=== PATIENT | male | born 2000 | race Caucasian/White ===

== ENCOUNTER 2018-09-07 06:51 | Inpatient (IN) | payer MEDICAID ==
[2018-09-07] MEDS ORDERED: IPRATROPIUM-ALBUTEROL 3 ML NEB INHALATION STA (07:28)
--- NOTE | 2018-09-07 07:31 | ED ---
General Adult HPI - General Chief complaint: Shortness of Breath Stated complaint: Difficulty Breathing Time Seen by Provider: 09/07/18 07:04 Source: patient, RN notes reviewed Mode of arrival: ambulatory Limitations: no limitations - History of Present Illness Initial comments: Patient is a pleasant 18-year-old male presenting to the emergency department with difficulty in breathing. Onset of symptoms was several days ago. Symptoms have worsened since that time answering to become severe. Patient has had a cough for the past month or so prior to this. No history of chronic breathing problems are similar symptoms previously. No chest pain. Patient does have history of some sort of congenital valve problem however has never had any problems with this. - Related Data Home Medications Medication Instructions Recorded Confirmed Ibuprofen [Motrin Ib] 200 mg PO Q4H PRN 09/07/18 09/07/18 guaiFENesin [Mucinex] 600 mg PO Q12H PRN 09/07/18 09/07/18 Allergies Allergy/AdvReac Type Severity Reaction Status Date / Time Penicillins Allergy Unknown Verified 09/07/18 07:48 Review of Systems ROS Statement: Those systems with pertinent positive or pertinent negative responses have been documented in the HPI. ROS Other: All systems not noted in ROS Statement are negative. Constitutional: Denies: fever Eyes: Denies: eye pain ENT: Denies: ear pain Respiratory: Reports: as per HPI, cough (Cough has resolved), dyspnea Cardiovascular: Denies: chest pain Endocrine: Reports: fatigue Gastrointestinal: Denies: abdominal pain Genitourinary: Denies: dysuria Musculoskeletal: Denies: back pain Skin: Denies: rash Neurological: Denies: weakness Past Medical History Past Medical History: No Reported History Additional Past Medical History / Comment(s): Congenital heart defect bicuspid valve no restrictions, followed by [facility] History of Any Multi-Drug Resistant Organisms: None Reported Additional Past Surgical History / Comment(s): EYE- muscles in both eyes tightened 1999 Past Psychological History: No Psychological Hx Reported Smoking Status: Never smoker Past Alcohol Use History: None Reported Past Drug Use History: None Reported - Past Family History Mother Additional Family Medical History / Comment(s): hypoglycemic, CA on mom's side, mom had precancerous cells, monitored yearly General Exam Limitations: no limitations General appearance: alert Head exam: Present: atraumatic Eye exam: Present: normal appearance, PERRL ENT exam: Present: normal oropharynx Neck exam: Present: normal inspection Respiratory exam: Present: wheezes, accessory muscle use, decreased breath sounds Cardiovascular Exam: Present: regular rate, normal rhythm GI/Abdominal exam: Present: soft. Absent: tenderness Extremities exam: Present: normal inspection. Absent: pedal edema, calf tend erness Neurological exam: Present: alert Psychiatric exam: Present: normal affect, normal mood Skin exam: Present: normal color Course Vital Signs 09/07/18 09/07/18 09/07/18 06:56 07:52 07:59 Temperature 98.2 F Pulse Rate 108 H 103 H 122 H Respiratory 24 18 Rate Blood Pressure 136/82 126/87 O2 Sat by Pulse 96 95 Oximetry 09/07/18 09/07/18 09/07/18 08:06 09:35 10:03 Temperature 98.4 F Pulse Rate 124 H 107 H 112 H Respiratory 22 22 Rate Blood Pressure 114/97 125/91 O2 Sat by Pulse 96 96 Oximetry EKG Findings - EKG Comments: EKG Findings:: Normal sinus rhythm and 97. VT 118. QRS 92. QT 340. QTc 431. Right axis. Poor R-wave progression. Incomplete right bundle-branch block. Normal ST-T. Medical Decision Making - Medical Decision Making Patient reevaluated and resting comfortably in bed. Air exchange increased however wheezing has also increased. Patient again denies any history of smoking or asthma. Patient updated on results and plan. Case was discussed in detail with Dr. Gardiner, who will admit covering for hospital call. Echo will be ordered. - Lab Data Result diagrams: 09/07/18 07:14 09/07/18 07:14 Lab Results 09/07/18 09/07/18 09/07/18 Range/Units 07:14 07:14 07:14 WBC 14.4 H (4.0-11.0) k/uL RBC 5.85 (4.30-5.90) m/uL Hgb 17.7 H (13.0-17.5) gm/dL Hct 51.7 (39.0-53.0) % MCV 88.3 (80.0-100.0) fL MCH 30.2 (25.0-35.0) pg MCHC 34.2 (31.0-37.0) g/dL RDW 14.2 (11.5-15.5) % Plt Count 341 (150-450) k/uL Neutrophils % 72 % Lymphocytes % 17 % Monocytes % 4 % Eosinophils % 5 % Basophils % 1 % Neutrophils # 10.3 H (1.3-7.7) k/uL Lymphocytes # 2.4 (1.0-4.8) k/uL Monocytes # 0.5 (0-1.0) k/uL Eosinophils # 0.8 H (0-0.7) k/uL Basophils # 0.1 (0-0.2) k/uL PT (9.0-12.0) sec INR (<1.2) APTT (22.0-30.0) sec D-Dimer (<0.60) mg/L FEU Sodium 140 (137-145) mmol/L Potassium 5.0 (3.5-5.1) mmol/L Chloride 101 (98-107) mmol/L Carbon Dioxide 26 (22-30) mmol/L Anion Gap 13 mmol/L BUN 12 (9-20) mg/dL Creatinine 0.71 (0.66-1.25) mg/dL Est GFR (CKD-EPI)AfAm >90 (>60 ml/min/1.73 sqM) Est GFR (CKD-EPI)NonAf >90 (>60 ml/min/1.73 sqM) Glucose 84 (74-99) mg/dL Calcium 10.5 H (8.4-10.2) mg/dL Total Bilirubin 1.4 H (0.2-1.3) mg/dL AST 38 (17-59) U/L ALT 38 (21-72) U/L Alkaline Phosphatase 148 H (38-126) U/L Creatine Kinase 197 H (55-170) U/L CK-MB (CK-2) 5.2 H (0.0-2.4) ng/mL Troponin I <0.012 (0.000-0.034) ng/mL NT-Pro-B Natriuret Pep pg/mL Total Protein 9.0 H (6.3-8.2) g/dL Albumin 5.4 H (3.5-5.0) g/dL 09/07/18 09/07/18 Range/Units 07:14 07:14 WBC (4.0-11.0) k/uL RBC (4.30-5.90) m/uL Hgb (13.0-17.5) gm/dL Hct (39.0-53.0) % MCV (80.0-100.0) fL MCH (25.0-35.0) pg MCHC (31.0-37.0) g/dL RDW (11.5-15.5) % Plt Count (150-450) k/uL Neutrophils % % Lymphocytes % % Monocytes % % Eosinophils % % Basophils % % Neutrophils # (1.3-7.7) k/uL Lymphocytes # (1.0-4.8) k/uL Monocytes # (0-1.0) k/uL Eosinophils # (0-0.7) k/uL Basophils # (0-0.2) k/uL PT 11.0 (9.0-12.0) sec INR 1.0 (<1.2) APTT 24.4 (22.0-30.0) sec D-Dimer 0.20 (<0.60) mg/L FEU Sodium (137-145) mmol/L Potassium (3.5-5.1) mmol/L Chloride (98-107) mmol/L Carbon Dioxide (22-30) mmol/L Anion Gap mmol/L BUN (9-20) mg/dL Creatinine (0.66-1.25) mg/dL Est GFR (CKD-EPI)AfAm (>60 ml/min/1.73 sqM) Est GFR (CKD-EPI)NonAf (>60 ml/min/1.73 sqM) Glucose (74-99) mg/dL Calcium (8.4-10.2) mg/dL Total Bilirubin (0.2-1.3) mg/dL AST (17-59) U/L ALT (21-72) U/L Alkaline Phosphatase (38-126) U/L Creatine Kinase (55-170) U/L CK-MB (CK-2) (0.0-2.4) ng/mL Troponin I (0.000-0.034) ng/mL NT-Pro-B Natriuret Pep 44 pg/mL Total Protein (6.3-8.2) g/dL Albumin (3.5-5.0) g/dL - Radiology Data Radiology results: image reviewed (Chest x-ray shows no acute process) Disposition Clinical Impression: Dyspnea, Bronchospasm Disposition: ADMITTED IP TO THIS HOSP Is patient prescribed a controlled substance at d/c from ED?: No Referrals: None,Stated [Primary Care Provider] - 1-2 days Decision Time: 10:23
--- NOTE | 2018-09-07 08:34 | XR ---
EXAMINATION TYPE: XR chest 2V DATE OF EXAM: 09/07/2018 COMPARISON: Chest x-ray February 07, 2014 HISTORY: Difficulty breathing on exertion. TECHNIQUE: Frontal and lateral views of the chest are obtained. FINDINGS: Overlying EKG leads are present. Satisfactory inspiration is noted. There is no focal air space opacity, pleural effusion, or pneumothorax seen. The cardiac silhouette size is within normal limits. The osseous structures are intact. IMPRESSION: No acute cardiopulmonary process. No significant change from prior.
[2018-09-07 08:41] LABS: Basophils # (A) 0.1 k/uL (0-0.2); Basophils % (A) 1 %; Eosinophils # (A) 0.8 k/uL (0-0.7); Eosinophils % (A) 5 %; HCT 51.7 % (39.0-53.0); HGB 17.7 gm/dL (13.0-17.5); Lymphocytes # (A) 2.4 k/uL (1.0-4.8); Lymphocytes % (A) 17 %; MCH 30.2 pg (25.0-35.0); MCHC 34.2 g/dL (31.0-37.0); MCV 88.3 fL (80.0-100.0); Mean Platelet Volume 7.6; Monocytes # (A) 0.5 k/uL (0-1.0); Monocytes % (A) 4 %; Neutrophils # (A) 10.3 k/uL (1.3-7.7); Neutrophils % (A) 72 %; Platelet Count 341 k/uL (150-450); RBC 5.85 m/uL (4.30-5.90); RDW 14.2 % (11.5-15.5); WBC 14.4 k/uL (4.0-11.0)
[2018-09-07 08:47] LABS: ALT 38 U/L (21-72); AST 38 U/L (17-59); Albumin 5.4 g/dL (3.5-5.0); Alkaline Phosphatase 148 U/L (38-126); Anion Gap 13 mmol/L; Blood Urea Nitrogen 12 mg/dL (9-20); Calcium 10.5 mg/dL (8.4-10.2); Carbon Dioxide 26 mmol/L (22-30); Chloride 101 mmol/L (98-107); Creatine Kinase 197 U/L (55-170); Glucose 84 mg/dL (74-99); Sodium 140 mmol/L (137-145); Total Bilirubin 1.4 mg/dL (0.2-1.3)
[2018-09-07 08:48] LABS: D-Dimer 0.2 mg/L FEU (<0.60); Partial Thromboplastin Time 24.4 sec (22.0-30.0)
[2018-09-07 09:07] LABS: Creatine Kinase MB 5.2 ng/mL (0.0-2.4); Troponin I <0.012 ng/mL (0.000-0.034)
[2018-09-07] MEDS ORDERED: methylPREDNISolone SOD SUCCI 125 MG/2 ML VIAL IV STA (10:23)
[2018-09-07] MEDS ORDERED: IPRATROPIUM-ALBUTEROL 3 ML NEB INHALATION PRN (10:23)
[2018-09-07] MEDS: IPRATROPIUM-ALBUTEROL 3 ML NEB INHALATION SCH ×3 (11:29→19:24)
--- NOTE | 2018-09-07 12:33 | ECHOF ---
Referral Reason:Dyspnea. History of valve problem MEASUREMENTS -------- HEIGHT: 165.1 cm WEIGHT: 49.9 kg BP: 123/87 RVIDd: 2.1 cm (< 3.3) IVSd: 1.0 cm (0.6 - 1.1) LVIDd: 2.9 cm (3.9 - 5.3) LVPWd: 1.0 cm (0.6 - 1.1) IVSs: 1.3 cm LVIDs: 2.0 cm LVPWs: 1.4 cm LA Diam: 1.7 cm (2.7 - 3.8) LAESV Index (A-L): 8.50 ml/m Ao Diam: 3.4 cm (2.0 - 3.7) AV Cusp: 2.1 cm (1.5 - 2.6) EPSS: 0.5 cm MV E Chacorta: 0.82 m/s MV DecT: 340 ms MV A Chacorta: 0.78 m/s MV E/A Ratio: 1.06 AV maxP.01 mmHg AV meanP.11 mmHg RAP: 5.00 mmHg RVSP: 30.82 mmHg MV EF SLOPE: 59.63 mm/s (70 - 150) MV EXCURSION: 2.00 cm (> 18.000) FINDINGS -------- Sinus rhythm. This was a technically good study. The left ventricular size is normal. Left ventricular wall thickness is normal. Overall left vent ricular systolic function is normal with, an EF between 60 - 65 %. The right ventricle is normal in size. Normal LA size by volume 22+/-6 ml/m2. The right atrium is normal in size. Interatrial and interventricular septum intact. Peak/mean gradient across the Aortic Valve is 5.01mmHg / 2.11mmHg. Functionally bicuspid aortic amelia ve. The mitral valve is normal. Mild tricuspid regurgitation present. Right ventricular systolic pressure is normal at < 35 mmHg. There is no pulmonic regurgitation present. The aortic root size is normal. Normal inferior vena cava with normal inspiratory collapse consistent with estimated right atrial pre ssure of 5 mmHg. There is no pericardial effusion. CONCLUSIONS -------- 1. Sinus rhythm. 2. This was a technically good study. 3. The left ventricular size is normal. 4. Left ventricular wall thickness is normal. 5. Overall left ventricular systolic function is normal with, an EF between 60 - 65 %. 6. The right ventricle is normal in size. 7. Normal LA size by volume 22+/-6 ml/m2. 8. The right atrium is normal in size. 9. Interatrial and interventricular septum intact. 10. Peak/mean gradient across the Aortic Valve is 5.01mmHg / 2.11mmHg. 11. Functionally bicuspid aortic valve. 12. The mitral valve is normal. 13. Mild tricuspid regurgitation present. 14. Right ventricular systolic pressure is normal at < 35 mmHg. 15. There is no pulmonic regurgitation present. 16. The aortic root size is normal. 17. Normal inferior vena cava with normal inspiratory collapse consistent with estimated right atrial pressure of 5 mmHg. 18. There is no pericardial effusion. SOC ANALYST: FORREST Salazar
[2018-09-07] MEDS: methylPREDNISolone SOD SUCCI 125 MG/2 ML VIAL IV SCH ×2 (15:34→17:24)
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
--- NOTE | 2018-09-07 17:35 | CT ---
EXAMINATION TYPE: CT chest angio for PE DATE OF EXAM: 09/07/2018 COMPARISON: NONE HISTORY: HERB. Hx bicuspid aortic valve defect CT DLP: 125.40 mGycm. Automated Exposure Control for Dose Reduction was Utilized. CONTRAST: CTA scan of the thorax is performed with IV Contrast, patient injected with 100 mL of Isovue 370, pul monary embolism protocol. MIP Images are created on CT scanner and reviewed. FINDINGS: LUNGS: There are multiple focal areas of ground glass opacity seen bilaterally slightly more prominen t anteriorly and centrally. Exam is noted suboptimal due to respiratory motion artifact degradation w hich limits evaluation for subcentimeter nodules. No suspicious mass is clearly seen. No pleural effu chantal or pneumothorax is noted. MEDIASTINUM: There is suboptimal study with heterogeneity and nearly equal contrast in right and lef t heart systems, there is no central or lobar pulmonary embolism. Smaller segmental and subsegmental PE is not excluded on this study. There are no greater than 1 cm hilar or mediastinal lymph nodes. No cardiomegaly or pericardial effusion is seen. OTHER: No additional significant abnormality is seen. IMPRESSION: 1. Suboptimal study without central large pulmonary embolism. Smaller segmental and subsegmental PE c annot be excluded on this exam. 2. Bilateral multifocal edema and/or infiltrates centrally in both lungs. Correlate clinically for po ssible multifocal pneumonia.
[2018-09-07] MEDS ORDERED: AZITHROMYCIN 500 MG in SODIUM CHLORIDE 0.9% 250 ML IVPB SCH (20:00)
[2018-09-08] MEDS: methylPREDNISolone SOD SUCCI 125 MG/2 ML VIAL IV SCH ×4 (00:12→19:52)
[2018-09-08] MEDS: IPRATROPIUM-ALBUTEROL 3 ML NEB INHALATION SCH ×4 (07:20→19:07)
[2018-09-08 07:44] LABS: Basophils % (A) 0 %; Eosinophils # (A) 0.1 k/uL (0-0.7); Eosinophils % (A) 1 %; HCT 46.5 % (39.0-53.0); HGB 15.6 gm/dL (13.0-17.5); Lymphocytes # (A) 1.2 k/uL (1.0-4.8); Lymphocytes % (A) 11 %; MCH 30.3 pg (25.0-35.0); MCHC 33.6 g/dL (31.0-37.0); MCV 90.3 fL (80.0-100.0); Mean Platelet Volume 6.8; Monocytes # (A) 0.2 k/uL (0-1.0); Monocytes % (A) 2 %; Neutrophils # (A) 8.9 k/uL (1.3-7.7); Neutrophils % (A) 86 %; Platelet Count 341 k/uL (150-450); RBC 5.15 m/uL (4.30-5.90); RDW 13.2 % (11.5-15.5); WBC 10.3 k/uL (4.0-11.0)
[2018-09-08 07:53] LABS: ALT 28 U/L (21-72); AST 21 U/L (17-59); Albumin 4.9 g/dL (3.5-5.0); Alkaline Phosphatase 107 U/L (38-126); Anion Gap 11 mmol/L; Blood Urea Nitrogen 15 mg/dL (9-20); Calcium 10.3 mg/dL (8.4-10.2); Carbon Dioxide 23 mmol/L (22-30); Chloride 104 mmol/L (98-107); Glucose 137 mg/dL (74-99); Sodium 138 mmol/L (137-145); Total Bilirubin 0.8 mg/dL (0.2-1.3); Total Protein 7.9 g/dL (6.3-8.2)
--- NOTE | 2018-09-08 09:50 | P.PN ---
Subjective Progress Note Date: 09/08/18 Principal diagnosis: Pneumonia Patient feels much better today, shortness of breath has significantly improved, denies wheezing, no nausea no vomiting and no chest pain. Objective - Vital Signs Vital signs: Vital Signs Temp 97.7 F 09/08/18 05:39 Pulse 88 09/08/18 07:33 Resp 16 09/08/18 05:39 BP 94/56 09/08/18 05:39 Pulse Ox 92 L 09/08/18 05:39 Intake & Output 09/07/18 09/08/18 09/08/18 18:59 06:59 18:59 Intake Total 1540 1210 Balance 1540 1210 Intake: Intake, IV Titration 100 250 Amount Azithromycin 500 mg In 250 Sodium Chloride 0.9% 250 ml @ 250 mls/hr IVPB Q24H [facility]UE Rx#:[id number] cefTRIAXone 1 gm In 100 Sodium Chloride 0.9% 50 ml @ 100 mls/hr IVPB Q24HR [facility]UE Rx#:[id number] Oral 1440 960 Other: Voiding Method Toilet Toilet # Voids 2 2 1 - Exam Constitutional: No acute distress, pleasant Eyes: Anicteric sclerae, PERRLA ENMT: NC/AT Neck:Supple, supple no JVD Lungs: Clear to auscultation, no crackles no wheezing or rhonchi Cardiovascular: Heart regular in rate and rhythm, No murmurs, gallops, or rubs no peripheral edema Abdominal: Soft Nontender, nom distended, no guarding, no rebound or rigidity Skin: Normal temperature, tone, texture, turgor Extremities:No digital cyanosis No clubbing, no edema. Psychiatric: Alert and oriented to person, place and time, Appropriate affect Intact judgement Neuro: Muscles Strength 5/5 in all 4 extremities, Cranial nerves II-XII grossly intact - Labs CBC & Chem 7: 09/08/18 07:15 09/08/18 07:15 Labs: Abnormal Lab Results - Last 24 Hours (Table) 09/08/18 09/08/18 Range/Units 07:15 07:15 Neutrophils # 8.9 H (1.3-7.7) k/uL Creatinine 0.62 L (0.66-1.25) mg/dL Glucose 137 H (74-99) mg/dL Calcium 10.3 H (8.4-10.2) mg/dL Assessment and Plan Plan: 1. Bilateral multifocal pneumonia, unspecified organism: Continue Ceftin and Zithromax, oxygen and bronchodilators as indicated. Continue IV steroids for wheezing which has significantly improved. CTA chest negative for PE 2. Bicuspid aortic valve: 2-D echo unremarkable for acute findings, CTA chest unremarkable except for pneumonia, cardiology following. 3. Leukocytosis: WBC normalized from 14.4 down to 10.3 4. DVT prophylaxis Change to inpatient Disposition: Home in 1-2 days
[2018-09-08] MEDS ORDERED: NADOLOL 20 MG TAB PO SCH (10:00)
[2018-09-08 10:49] VITALS: BMI 18.3
--- NOTE | 2018-09-08 13:48 | P.CRDCN ---
History of Present Illness History of present illness: This is a pleasant 18-year-old male past medical history significant for bicuspid aortic valve and occasional marijuana use. He follows with Dr. Nunes from [facility]. We have been asked to see him in consultation for congenital heart disease. He was diagnosed with a biscuspid aortic valve as a child and established with Dr. Nunes. He has never had any heart failure or symptoms of valvular heart disease. He states he has been coughing intermittently for the last month with some mild shortness of breath. Until 2 days ago when his shortness of breath increased dramatically. He was at work doing a particularly strenuous task when he became so short of breath he had to sit down. There was no chest pain, dizziness, nausea, vomiting or diaphoresis. He states his heart rate is almost always on the fast side up to 120 sometimes at home. At the time of his shortness of breath he did not notice any palpitations but his heart was racings. He has been started on IV antibiotics since admission along with updraft treatments and IV steroids. He states his breathing has stabilized at rest however he hasn't been up doing much to assess his exertional breathing. EKG reveals sinus rhythm, right axis deviation, incomplete right bundle block, right axis deviation, t-wave inversion inferiorly and P-wave inversions. Suggestive of PE. Chest x-ray obtained on admission is negative for an acute cardiopulmonary process. CTA chest is negative for central large pulmonary embolus, smaller segmental and subsegmental PEs cannot be excluded, bilateral multifocal edema and infiltrates essentially rambles lungs possible multifocal pneumonia suspected. Echocardiogram reveals preserved left ventricular systolic function with ejection fraction 60-65%, bicuspid aortic valve with a mean gradient across the valve of 2 mmHg, mild TR. Laboratory data reviewed, on admission WBC was 14.4 repeat today 10.3, hemoglobin 15.6, platelets 341, d-dimer 0.2, sodium 138, potassium 5, creatinine 0.62, cardiac enzymes negative 1, and T proBNP 44, TSH 0.147. She takes no daily cardiac medications. At the time of my exam: CONSTITUTIONAL: Denies fever. Denies chills. EYES: Denies blurred vision. Denies vision changes. Denies eye pain. EARS, NOSE, MOUTH & THROAT: Denies headache. Denies sore throat. Denies ear pain. CARDIOVASCULAR: Denies chest pain. Denies shortness of breath. Denies orthopnea. Denies PND. Denies palpitations. RESPIRATORY: Complains of cough. GASTROINTESTINAL: Denies abdominal pain. Denies diarrhea. Denies constipation. Denies nausea. Denies vomiting. MUSCULOSKELETAL: Denies myalgias. INTEGUMENTARY: Denies pruitis. Denies rash. NEUROLOGIC: Denies numbness. Denies tingling. Denies weakness. PSYCHIATRIC: Denies anxiety. Denies depression. ENDOCRINE: Denies fatigue. Denies weight change. Denies polydipsia. Denies polyurina. GENITOURINARY: Denies burning, hematuria or urgency with micturation. HEMATOLOGIC: Denies history of anemia. Denies bleeding. Blood pressure 118/82 heart rate fluctuating between 80-120 afebrile maintaining oxygen saturation on room air GENERAL: This is a 18-year-old male in no apparent distress at the time of my examination. HEENT: Head is atraumatic, normocephalic. Pupils are equal, round. Sclerae anicteric. Conjunctivae are clear. Mucous membranes of the mouth are moist. Neck is supple. There is no jugular venous distention. No carotid bruit is heard. LUNGS: Clear to auscultation no wheezes, rales or rhonchi. No chest wall tenderness is noted on palpation or with deep breathing. HEART: Regular rate and rhythm without murmurs, rubs or gallops. S1 and S2 heard. ABDOMEN: Soft, nontender. Bowel sounds are heard. No organomegaly noted. EXTREMITIES: No evidence of peripheral edema and no calf tenderness noted. VASCULAR: Radial and dorsalis pedis pulses palpated, no evidence of clubbing. NEUROLOGIC: Patient is awake, alert and oriented x3. ASSESSMENT Shortness of breath, currently being treated for multifocal pneumonia. Biscuspid aortic valve with mild stenosis Leukocytosis Sinus tachycardia, persistent. PLAN CTA negative for large central PE with possibly smaller PE's not entirely excluded. Check TSH and free T4 for possibility of hyperthyroidism causing his chronic tachycardia. He is also quite thin. Repeat EKG. Check for orthostatic changes. No evidence of RV strain on echo. Initiated on nadolol 20 mg, however he felt tired, weak and drowsy after taking. Has been discontinued. Further recommendations to follow. Thank you kindly for this consultation. Nurse Practitioner note has been reviewed, I agree with a documented findings and plan of care. Patient was seen and examined. Past Medical History Past Medical History: Syncope Additional Past Medical History / Comment(s): Congenital heart defect bicuspid valve- no restrictions, syncope d/t dehydration. History of Any Multi-Drug Resistant Organisms: None Reported Additional Past Surgical History / Comment(s): EYE- muscles in both eyes tightened 2000 Past Anesthesia/Blood Transfusion Reactions: No Reported Reaction Smoking Status: Never smoker - Past Family History Mother History Unknown: Yes Additional Family Medical History / Comment(s): Pt states he has not been in contact with his mother and does not know her health hx Father Family Medical History: No Reported History Additional Family Medical History / Comment(s): Father in a motorcycle accident when pt was 4 yrs old. Medications and Allergies Home Medications Medication Instructions Recorded Confirmed Type Ibuprofen [Motrin Ib] 200 mg PO Q4H PRN 09/07/18 09/07/18 History guaiFENesin [Mucinex] 600 mg PO Q12H PRN 09/07/18 09/07/18 History Allergies Allergy/AdvReac Type Severity Reaction Status Date / Time Penicillins Allergy Unknown Verified 09/07/18 07:48 Physical Exam Vitals: Vital Signs Temp Pulse Pulse Pulse Pulse Pulse Pulse 09/08/18 10:30 97 118 H 90 09/08/18 08:00 88 09/08/18 07:33 88 09/08/18 07:20 87 09/08/18 05:39 97.7 F 110 H 09/08/18 00:00 92 09/07/18 21:00 98.0 F 128 H 09/07/18 20:01 09/07/18 19:36 88 09/07/18 19:26 82 09/07/18 16:00 100 09/07/18 15:53 102 H 09/07/18 15:45 98 09/07/18 14:00 99.1 F 100 09/07/18 13:32 120 H Resp BP BP BP BP Pulse Ox 09/08/18 10:30 118/82 118/74 114/69 09/08/18 08:00 16 09/08/18 07:33 09/08/18 07:20 09/08/18 05:39 16 94/56 92 L 09/08/18 00:00 16 09/07/18 21:00 16 121/73 98 09/07/18 20:01 18 09/07/18 19:36 09/07/18 19:26 09/07/18 16:00 18 09/07/18 15:53 09/07/18 15:45 09/07/18 14:00 18 143/73 93 L 09/07/18 13:32 18 Intake and Output 09/07/18 09/08/18 09/08/18 22:59 06:59 14:59 Intake Total 730 480 Balance 730 480 Intake: Intake, IV Titration 250 Amount Azithromycin 500 mg In 250 Sodium Chloride 0.9% 250 ml @ 250 mls/hr IVPB Q24H [facility] Rx#:[id number] Oral 480 480 Other: Voiding Method Toilet Toilet Toilet # Voids 3 2 1 Weight 49.895 kg Results 09/08/18 07:15 09/08/18 07:15 Cardiac Enzymes 09/08/18 Range/Units 07:15 AST 21 (17-59) U/L CBC 09/08/18 Range/Units 07:15 WBC 10.3 (4.0-11.0) k/uL RBC 5.15 (4.30-5.90) m/uL Hgb 15.6 (13.0-17.5) gm/dL Hct 46.5 (39.0-53.0) % Plt Count 341 (150-450) k/uL Comprehensive Metabolic Panel 09/08/18 Range/Units 07:15 Sodium 138 (137-145) mmol/L Potassium 5.0 (3.5-5.1) mmol/L Chloride 104 (98-107) mmol/L Carbon Dioxide 23 (22-30) mmol/L BUN 15 (9-20) mg/dL Creatinine 0.62 L (0.66-1.25) mg/dL Glucose 137 H (74-99) mg/dL Calcium 10.3 H (8.4-10.2) mg/dL AST 21 (17-59) U/L ALT 28 (21-72) U/L Alkaline Phosphatase 107 (38-126) U/L Total Protein 7.9 (6.3-8.2) g/dL Albumin 4.9 (3.5-5.0) g/dL Current Medications Generic Name Dose Route Start Last Admin Trade Name Freq PRN Reason Stop Dose Admin Albuterol/Ipratropium 3 ml 09/07/18 12:00 09/08/18 11:21 Duoneb 0.5 Mg-3 Mg/3 Ml Soln INHALATION Not Given RT-QID YUE Albuterol/Ipratropium 3 ml 09/07/18 10:23 Duoneb 0.5 Mg-3 Mg/3 Ml Soln INHALATION RT-Q4H PRN Shortness Of Breath Or Wheezing Azithromycin 500 mg 09/08/18 20:00 Zithromax PO Q24H YUE Ceftriaxone Sodium 1 gm/ 50 mls @ 100 mls/hr 09/07/18 17:00 09/07/18 17:21 Sodium Chloride IVPB 100 mls/hr Q24H YUE Administration Methylprednisolone Sodium Succinate 60 mg 09/08/18 10:30 09/08/18 11:00 Solu-Medrol IV 60 mg Q12HR YUE Administration Intake and Output 09/07/18 09/08/18 09/08/18 22:59 06:59 14:59 Intake Total 730 480 Balance 730 480 Intake: Intake, IV Titration 250 Amount Azithromycin 500 mg In 250 Sodium Chloride 0.9% 250 ml @ 250 mls/hr IVPB Q24H [facility] Rx#:[id number] Oral 480 480 Other: Voiding Method Toilet Toilet Toilet # Voids 3 2 1 Weight 49.895 kg Patient Weight 09/09/18 06:59 Weight 49.895 kg 09/08/18 07:15 09/08/18 07:15
[2018-09-08 14:22] LABS: T4, Free (Free Thyroxine) 1.34 ng/dL (0.78-2.19)
[2018-09-08] MEDS ORDERED: AZITHROMYCIN 500 MG TAB PO SCH (20:00)
[2018-09-09] MEDS: IPRATROPIUM-ALBUTEROL 3 ML NEB INHALATION SCH ×2 (07:13→11:14)
[2018-09-09 08:17] LABS: ALT 29 U/L (21-72); AST 25 U/L (17-59); Albumin 4.5 g/dL (3.5-5.0); Alkaline Phosphatase 87 U/L (38-126); Anion Gap 9 mmol/L; Blood Urea Nitrogen 22 mg/dL (9-20); Carbon Dioxide 27 mmol/L (22-30); Chloride 102 mmol/L (98-107); Glucose 103 mg/dL (74-99); Potassium 4.8 mmol/L (3.5-5.1); Sodium 138 mmol/L (137-145); Total Bilirubin 0.6 mg/dL (0.2-1.3); Total Protein 7.3 g/dL (6.3-8.2)
[2018-09-09 08:20] LABS: Basophils % (A) 0 %; Eosinophils # (A) 0.1 k/uL (0-0.7); Eosinophils % (A) 0 %; HCT 45.2 % (39.0-53.0); HGB 15.1 gm/dL (13.0-17.5); Lymphocytes # (A) 1.9 k/uL (1.0-4.8); Lymphocytes % (A) 10 %; MCH 30.3 pg (25.0-35.0); MCHC 33.5 g/dL (31.0-37.0); MCV 90.6 fL (80.0-100.0); Mean Platelet Volume 7.8; Monocytes # (A) 0.8 k/uL (0-1.0); Monocytes % (A) 4 %; Neutrophils # (A) 15.8 k/uL (1.3-7.7); Neutrophils % (A) 85 %; Platelet Count 365 k/uL (150-450); RDW 14.1 % (11.5-15.5); WBC 18.6 k/uL (4.0-11.0)
[2018-09-09] MEDS ORDERED: guaiFENesin SYRUP 100MG/5ML 200 MG/10 ML CUP PO PRN (08:20)
[2018-09-09] MEDS: methylPREDNISolone SOD SUCCI 125 MG/2 ML VIAL IV SCH (08:42)
[2018-09-09] MEDS ORDERED: CEFDINIR 300 MG CAP PO SCH (09:00)
--- NOTE | 2018-09-09 09:08 | P.DS ---
Providers Date of admission: 09/08/18 11:16 Expected date of discharge: 09/09/18 Attending physician: Leora Rivera MD Consults: 09/07/18 11:05 Consult Physician Routine Consulting Provider: [facility] Consult Reason/Comments: hypoxia/congenital heart disease Do you want consulting provider notified?: Already Contacted Primary care physician: Stated None Hospital Course: Diagnoses upon discharge: 1. Bilateral multifocal pneumonia, unspecified organism 2. Bicuspid aortic valve 3. Leukocytosis 4. Sinus tachycardia HPI: This is a a 18-year-old who came to the emergency room 2 days history of shortness of breath and cough. His shortness of breath did not improve thus he is seeking medical attention. He also reports dry,, but denies subjective fever or chills. He denies chest pain, no abdominal pain, nausea no vomiting no dizziness no loss of consciousness. He denies sick contacts. He denies hematuria dysuria hematemesis or hematochezia. At the time of examination he states that symptoms are better, he is still wheezing but does not appear to be in distress. Hospital course and treatment: Patient was admitted to the hospital with increased shortness of breath and cough. Chest x-ray was unremarkable but CT the chest was negative for PE but was consistent with bilateral multifocal pneumonia. Blood and sputum cultures at the time of discharge remained negative. He had leukocytoses white count 14.4 which normalized day 2 but at the time of discharge went up to 18.6 likely associated with steroids. He was treated with Rocephin and Zithromax and IV steroids ( for wheezing) associated with oxygen and bronchodilators. His symptoms continued to improve, he remained afebrile and feels much better. He had sinus tachycardia upon admission which subsequently normalized. For his bicuspid valve he was evaluated by cardiology, 2-D echo which was unremarkable except for bicuspid valve. He'll be discharged home with follow-up with PCP on oral Zithromax and oral prednisone. Plan - Discharge Summary Discharge Rx Participant: No New Discharge Prescriptions: New predniSONE 10 mg PO DAILY 4 Days #4 tab Azithromycin [Zithromax] 250 mg PO DAILY 5 Days #5 tab Continue Ibuprofen [Motrin Ib] 200 mg PO Q4H PRN PRN Reason: Pain Discontinued guaiFENesin [Mucinex] 600 mg PO Q12H PRN PRN Reason: Cough Discharge Medication List Ibuprofen [Motrin Ib] 200 mg PO Q4H PRN 09/07/18 [History] Azithromycin [Zithromax] 250 mg PO DAILY 5 Days #5 tab 09/09/18 [Rx] predniSONE 10 mg PO DAILY 4 Days #4 tab 09/09/18 [Rx] Activity/Diet/Wound Care/Special Instructions: diet: regular Activity: As tolerated Discharge Disposition: HOME SELF-CARE
[2018-09-09 11:54] VITALS: BP 124/73; PULSE 73; RESP 17; TEMP 97.6
== END 2018-09-09 12:40 | disposition home or self-care (01) | DRG 194 ==
LOC: EC 06:51 → 3NMEDONC 10:23 → OBSVTOIN 09-08 11:16
PROVIDERS: ADMIT Family Medicine; ATTEND Family Medicine
DX: J18.9 Pneumonia, unspecified organism (principal); Q23.1 Congenital insufficiency of aortic valve; I45.10 Unspecified right bundle-branch block; R00.0 Tachycardia, unspecified; Z88.0 Allergy status to penicillin; Z80.9 Family history of malignant neoplasm, unspecified
CPT/HCPCS: 36415; 71046; 71275; 80053; 82550; 82553; 83880; 84439; 84443; 84484; 85025; 85379; 85610; 85730; 87070; 87205; 87502; 93005; 93306; 94640; 94760; 96374; 99285

== ENCOUNTER 2019-09-23 15:52 | Emergency (ER) | payer MEDICAID ==
[2019-09-23] MEDS ORDERED: LIDOCAINE VISCOUS 2% 15 ML CUP MUCOUS MEM ONE (16:22)
[2019-09-23] MEDS ORDERED: DEXAMETHASONE 4 MG TAB PO STA (16:52)
--- NOTE | 2019-09-23 17:21 | ED ---
ENT HPI - General Chief complaint: ENT Stated complaint: Swollen tonsils Time Seen by Provider: 09/23/19 16:00 Source: patient Mode of arrival: ambulatory Limitations: no limitations - History of Present Illness Initial comments: The patient is a 19-year-old male with no past history who presents to the emergency room with reported sore throat. He reports to a sore throat for the past 2 days. States painful swallowing. Denies any drooling, trismus or hoarseness. No neck pain or stiffness. Denies any fevers or chills. No sick contacts with similar symptoms. Denies shortness of breath for the sensation that his throat is closing off. No headaches or visual changes. Denies any ear pain. No chest pain or abdominal pain. Denies nausea or vomiting. The patient is fully vaccinated. No other alleviating, precipitating or modifying factors - Related Data Home Medications Medication Instructions Recorded Confirmed Ibuprofen [Motrin Ib] 200 mg PO Q4H PRN 09/07/18 09/07/18 Previous Rx's Medication Instructions Recorded Azithromycin [Zithromax] 250 mg PO DAILY 5 Days #5 tab 09/09/18 predniSONE 10 mg PO DAILY 4 Days #4 tab 09/09/18 Allergies Allergy/AdvReac Type Severity Reaction Status Date / Time Penicillins Allergy Unknown Verified 09/23/19 16:02 Review of Systems ROS Statement: Those systems with pertinent positive or pertinent negative responses have been documented in the HPI. ROS Other: All systems not noted in ROS Statement are negative. Past Medical History Past Medical History: Syncope Additional Past Medical History / Comment(s): Congenital heart defect bicuspid valve- no restrictions, syncope d/t dehydration. History of Any Multi-Drug Resistant Organisms: None Reported Additional Past Surgical History / Comment(s): EYE- muscles in both eyes tightened 1999 Past Anesthesia/Blood Transfusion Reactions: No Reported Reaction Past Psychological History: No Psychological Hx Reported Past Alcohol Use History: None Reported Past Drug Use History: Marijuana - Past Family History Mother History Unknown: Yes Additional Family Medical History / Comment(s): Pt states he has not been in contact with his mother and does not know her health hx Father Family Medical History: No Reported History Additional Family Medical History / Comment(s): Father in a motorcycle accident when pt was 4 yrs old. General Exam Limitations: no limitations General appearance: alert, in no apparent distress Head exam: Present: atraumatic, normocephalic, normal inspection Eye exam: Present: normal appearance, PERRL, EOMI. Absent: scleral icterus, conjunctival injection, periorbital swelling ENT exam: Present: normal exam, mucous membranes moist, other (no peritonsillar abscess. No uvular deviation. No drooling, trismus, hoarseness or stridor. No cervical lymphadenopathy) Neck exam: Present: normal inspection. Absent: tenderness, meningismus, lymphadenopathy Respiratory exam: Present: normal lung sounds bilaterally. Absent: respiratory distress, wheezes, rales, rhonchi, stridor Cardiovascular Exam: Present: regular rate, normal rhythm, normal heart sounds. Absent: systolic murmur, diastolic murmur, rubs, gallop, clicks Course Vital Signs 09/23/19 09/23/19 09/23/19 15:58 16:16 17:31 Temperature 98.4 F 98.2 F Pulse Rate 86 81 Respiratory 18 18 16 Rate Blood Pressure 121/77 118/72 O2 Sat by Pulse 98 98 Oximetry Medical Decision Making - Medical Decision Making Upon arrival the patient's placed into room 20. A thorough history and physical exam was performed. Visualization demonstrates a patent airway. No signs of peritonsillar abscess. Patient is swabbed for strep which was negative. He is given viscous lidocaine to swish and spit as well as a dose of Decadron. I discussed diagnosis, differential and treatment options. At this time the patient will be discharged home follow up with his primary care doctor in 2-4 days. Return to the emergency department for any new or worsening symptoms. Patient was in agreement with the treatment plan and discharged home in stable condition - Lab Data Lab Results 09/23/19 Range/Units 16:30 Group A Strep Rapid Negative (Negative) Disposition Clinical Impression: Pharyngitis Disposition: HOME SELF-CARE Condition: Stable Instructions (If sedation given, give patient instructions): Pharyngitis (ED) Additional Instructions: Please follow-up with your primary care doctor in 2-4 days. Return to the emergency room for any new or worsening symptoms Is patient prescribed a controlled substance at d/c from ED?: No Referrals: None,Stated [Primary Care Provider] - 1-2 days Marv Hood MD [STAFF PHYSICIAN] - 1-2 days Time of Disposition: 17:20
[2019-09-23 17:32] VITALS: BP 118/72; PULSE 81; RESP 16; TEMP 98.2
== END 2019-09-23 17:31 | disposition home or self-care (01) ==
LOC: EC 15:52
DX: J02.9 Acute pharyngitis, unspecified (principal); Z88.0 Allergy status to penicillin
CPT/HCPCS: 87081; 87430; 99283; J8540

== ENCOUNTER → 2020-07-11 | Outpatient (CLI) | payer BC ==
--- NOTE | 2020-07-11 17:10 | XR ---
EXAMINATION TYPE: XR hand limited RT DATE OF EXAM: 07/11/2020 COMPARISON: NONE HISTORY: Pain TECHNIQUE: 2 views FINDINGS: There is nondisplaced oblique fracture of the proximal shaft of the fourth metacarpal. Ther e is no dislocation. The fingers are intact. Carpal bones are intact. IMPRESSION: Acute fracture of the proximal fourth metacarpal.
== END ==
LOC: RADXRMAIN 16:49
PROVIDERS: ATTEND Physician Assistant Medical
DX: S62.354A Nondisplaced fracture of shaft of fourth metacarpal bone, right hand, initial encounter for closed fracture (principal)

== ENCOUNTER 2020-07-12 18:05 | Inpatient (IN) | payer BC ==
--- NOTE | 2020-07-12 23:31 | ED ---
Psych HPI - General Chief Complaint: Psychiatric Symptoms Stated Complaint: mental health Time Seen by Provider: 07/12/20 18:10 Source: patient Mode of arrival: ambulatory - History of Present Illness Initial Comments: Patient is a 19-year-old male who presents emergency Department with reported suicidal ideations. Police accompany the patient. Patient states that he recently broke up with his girlfriend and became very distressed[place]. States that he was going [place] "jump [place] the river in order to kill himself". Admits to a long-standing history of depression. Denies being hospitalized. Patient is not currently on any medicat ions and states he has not seen a therapist in some time. Patient reports that he had a baseball bat because he was going to beat up anyone that attempted to stop him. He denies doing anything to harm himself. Patient complains of right hand pain. States that he fell 2 days ago. Saw his primary care physician who sent him for an x-ray yesterday. [facility] not [facility]. Patient smokes marijuana however denies other drug abuse. No other alleviating, precipitating or modifying factors - Related Data Home Medications Medication Instructions Recorded Confirmed Albuterol Inhaler [Ventolin Hfa 2 puff INHALATION RT-Q6H PRN 07/12/20 07/12/20 Inhaler] Fluticasone/Vilanterol [Breo 1 puff INHALATION RT-DAILY 07/12/20 07/12/20 Ellipta 100-25 Mcg Inhaler] Allergies Allergy/AdvReac Type Severity Reaction Status Date / Time Penicillins Allergy Unknown Verified 07/12/20 21:11 Review of Systems ROS Statement: Those systems with pertinent positive or pertinent negative responses have been documented in the HPI. ROS Other: All systems not noted in ROS Statement are negative. Past Medical History Past Medical History: Syncope Additional Past Medical History / Comment(s): Congenital heart defect bicuspid valve- no restrictions, syncope d/t dehydration. History of Any Multi-Drug Resistant Organisms: None Reported Additional Past Surgical History / Comment(s): EYE- muscles in both eyes tightened 1999 Past Anesthesia/Blood Transfusion Reactions: No Reported Reaction Past Psychological History: No Psychological Hx Reported Past Alcohol Use History: None Reported Past Drug Use History: Marijuana - Past Family History Mother History Unknown: Yes Additional Family Medical History / Comment(s): Pt states he has not been in contact with his mother and does not know her health hx Father Family Medical History: No Reported History Additional Family Medical History / Comment(s): Father in a motorcycle accident when pt was 4 yrs old. General Exam Limitations: no limitations General appearance: alert, in no apparent distress Head exam: Present: atraumatic, normocephalic, normal inspection Eye exam: Present: normal appearance, PERRL, EOMI. Absent: scleral icterus, conjunctival injection, periorbital swelling ENT exam: Present: normal exam, mucous membranes moist Neck exam: Present: normal inspection. Absent: tenderness, meningismus, lymphadenopathy Respiratory exam: Present: normal lung sounds bilaterally. Absent: respiratory distress, wheezes, rales, rhonchi, stridor Cardiovascular Exam: Present: regular rate, normal rhythm, normal heart sounds. Absent: systolic murmur, diastolic murmur, rubs, gallop, clicks GI/Abdominal exam: Present: soft, normal bowel sounds. Absent: distended, tenderness, guarding, rebound, rigid Extremities exam: Present: full ROM, tenderness (to the 4th and 5th metacarpals on the dorsal aspect. Mild deformity proximal 4th metacarpal. 2+ radial and ulnar pulses. intact sensation and strength in all 5 digits of the right and left hands), normal capillary refill. Absent: pedal edema, joint swelling, calf tenderness Back exam: Present: normal inspection Neurological exam: Present: alert, oriented X3, CN II-XII intact Psychiatric exam: Present: depressed, flat affect, suicidal ideation Skin exam: Present: warm, dry, intact, normal color. Absent: rash Course Vital Signs 07/12/20 07/13/20 07/13/20 18:06 00:47 02:00 Temperature 97.3 F L 97.8 F Pulse Rate 66 101 H 63 Respiratory 18 18 18 Rate Blood Pressure 138/99 102/65 O2 Sat by Pulse 99 97 98 Oximetry Procedures - Orthopedic Splinting/Casting Injury #1 Side: right Upper Extremity Injury Location: hand Upper Extremity Immobilizer: ulnar gutter, Lizandro wrap, synthetic pre-padded splint Medical Decision Making - Medical Decision Making Upon arrival the patient is placed into room 13. A thorough history and physical exam is performed. Patient was petitioned by police. Patient is cleared for EPS evaluation. I did review his x-ray and he does have a fourth metacarpal fracture. Patient was placed in a ulnar gutter splint. He remainded neurovascularly intacted before and after splint placement. EPS does evaluate the patient and the patient does require admission at this time. He is currently awaiting a bed on the floor - Lab Data Result diagrams: 07/14/20 06:07 07/14/20 06:07 Lab Results 07/12/20 Range/Units 21:55 Coronavirus (PCR) Not Detected (Not Detectd) Disposition Clinical Impression: Depression Disposition: TRANSFER TO PSYCH HOSP/UNIT Condition: Stable Is patient prescribed a controlled substance at d/c from ED?: No
[2020-07-13] MEDS ORDERED: MAGNESIUM HYDROXIDE 2,400 MG/10 ML CUP PO PRN (01:51)
[2020-07-13] MEDS ORDERED: ACETAMINOPHEN TAB 325 MG TAB PO PRN (01:51)
[2020-07-13] MEDS ORDERED: MAG HYDROX/AL HYDROX/SIMETH 30 ML CUP PO PRN (01:51)
[2020-07-13] MEDS ORDERED: LORazepam 1 MG TAB PO PRN (01:51)
[2020-07-13] MEDS ORDERED: LORazepam 2 MG/ML INJ IM PRN (01:54)
[2020-07-13] MEDS ORDERED: HALOPERIDOL LACTATE 5 MG/ML 1 ML VIAL IM PRN (01:55)
[2020-07-13] MEDS ORDERED: haloperidoL 5 MG TAB PO PRN (01:55)
[2020-07-13] MEDS: SYMBICORT 80-4.5 MCG INHALER (MHU) INHALATION SCH ×2 (08:19→21:20)
[2020-07-13] MEDS ORDERED: NICOTINE 14MG/24HR PATCH TRANSDERM SCH (09:00)
[2020-07-13] MEDS: ARIPiprazole 2 MG TAB PO SCH (09:39)
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
[2020-07-13 12:46] VITALS: BMI 18.6
[2020-07-13] MEDS: ALBUTEROL HFA INHALER INHALATION PRN ×2 (17:28→21:19)
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
[2020-07-14 07:00] LABS: Basophils % (A) 1 %; Eosinophils # (A) 0.3 k/uL (0-0.7); Eosinophils % (A) 4 %; HCT 47.3 % (39.0-53.0); HGB 16.8 gm/dL (13.0-17.5); Lymphocytes # (A) 2.5 k/uL (1.0-4.8); Lymphocytes % (A) 37 %; MCH 32.6 pg (25.0-35.0); MCHC 35.5 g/dL (31.0-37.0); MCV 91.7 fL (80.0-100.0); Mean Platelet Volume 7.4; Monocytes # (A) 0.4 k/uL (0-1.0); Monocytes % (A) 7 %; Neutrophils # (A) 3.3 k/uL (1.3-7.7); Neutrophils % (A) 50 %; Platelet Count 261 k/uL (150-450); RBC 5.16 m/uL (4.30-5.90); WBC 6.7 k/uL (3.8-10.6)
[2020-07-14 07:12] LABS: ALT 14 U/L (4-49); AST 25 U/L (17-59); African American GFR (CKD) >90 (>60 ml/min/1.73 sqM); Albumin 4.9 g/dL (3.5-5.0); Alkaline Phosphatase 86 U/L (38-126); Anion Gap 10 mmol/L; Blood Urea Nitrogen 12 mg/dL (9-20); Carbon Dioxide 30 mmol/L (22-30); Chloride 99 mmol/L (98-107); Cholesterol 153 mg/dL (<200); Glucose 89 mg/dL (74-99); HDL Cholesterol 39 mg/dL (40-60); LDL Cholesterol,Calculated 79 mg/dL (0-99); Non-African American GFR(CKD) >90 (>60 ml/min/1.73 sqM); Potassium 3.9 mmol/L (3.5-5.1); Sodium 139 mmol/L (137-145); Total Bilirubin 1.1 mg/dL (0.2-1.3); Total Protein 7.5 g/dL (6.3-8.2); Triglycerides 177 mg/dL (<150)
[2020-07-14] MEDS: ARIPiprazole 2 MG TAB PO SCH (08:01)
[2020-07-14] MEDS: SYMBICORT 80-4.5 MCG INHALER (MHU) INHALATION SCH ×2 (08:18→21:08)
--- NOTE | 2020-07-14 13:44 | P.PN ---
Progress Note - Text Progress Note Date: 07/14/20 Clinical Problems: Suicidal ideation, unspecified mood disorder, rule out bipolar disorder, rule out major depressive disorder, cluster B personality disorder rule out borderline personality disorder, cannabis use disorder Interim history: I reviewed the medical record and interviewed the patient. He denied feeling angry and feels that current control of his emotions. He talked about needing "time" to resolve his anger. He described periods of anger that becomes uncontrollable where he is unable to calm himself. He denied feeling depressed and denied thoughts of or suicide. He denied side effects to the initial dose of Abilify. He is attending therapeutic groups and activities. He slept 4 hours last night. Medical consult appreciated. Laboratory studies showed elevated triglyceride and decreased HDL cholesterol. We discussed aftercare. He is resistant to a referral for individual therapy because of past experiences. He was also hesitant about participation in anger management program. Mental status exam: He presented as a thin casually groomed young male who was pleasant on approach. He had a soft bandage on his right hand. He made eye contact and attended the interview. He had no abnormality of psychomotor activity. Her speech was spontaneous with normal rate, rhythm and volume. His affect was calm, stable and appropriate. He denies suicidal ideation and wishes. He denied homicidal ideation. He denied feeling hopeless, helpless or worthless. He did not express ideas reference, paranoid ideation or delusions. His thinking was abstract and associations were coherent, logical and goal directed. Assessment: He appears minimally mentally ill and much improved from admission. I suspect that his anger is characterological and he would benefit from, at the minimum, and anger management program. Plan: Continue inpatient treatment. Safety precautions. Increase Abilify to 2 mg daily. Encourage continued participation in therapeutic groups and activities. Social work to coordinate discharge and aftercare. Finally cl inical status response to treatment daily basis.
[2020-07-14 14:52] LABS: Hemoglobin A1C 4.3 % (4.0-6.0)
[2020-07-14] MEDS: ALBUTEROL HFA INHALER INHALATION PRN (18:12)
[2020-07-15] MEDS: SYMBICORT 80-4.5 MCG INHALER (MHU) INHALATION SCH ×2 (08:58→18:43)
[2020-07-15] MEDS ORDERED: ARIPiprazole 2 MG TAB PO SCH (09:00)
--- NOTE | 2020-07-15 09:59 | P.PN ---
Progress Note - Text Progress Note Date: 07/15/20 Interval History: Patient was seen wandering the hallways and was directable and agreeable to speak with typewriter tester in the office. She reports at today's feeling better. He reports that he had some difficulty sleeping last night to milieu problems. He is currently stating that he needed this time away from his family and his stressors to think things through and to calm down. He does endorse thoughts of self-harm but denies any suicidal or homicidal ideation, intention, and/or plan. He is not reporting any auditory or visualizations. He denies any paranoia or other delusions. His been adherent with his medication is not reporting any significant side effects at this time. Patient is stating that he is feeling ready for discharge soon. Mental Status Exam: General Appearance: Patient appears to be stated age is alert, directable, and cooperative. The patient has long blond hair and is of a thin build. He has a soft bandage over his right wrist and fingers. Behavior: Patient is calmly seated without any agitated behavior. Psychomotor activity is normal. Eye contact is appropriate. Speech: Patient's speech is fluent and nonpressured. Spontaneous, monotone, but otherwise with normal volume. Mood/Affect: Mood is improving mildly, affect is congruent and constricted. Suicidality/Homicidality: Patient denies having any suicidal or homicidal ideation intent or plan. Perceptions: Patient denies any visual hallucinations and denies any auditory hallucinations Though content/process: There is no evidence of any delusional thought content and thought process is linear and goal-directed. Memory and concentration: AOX3, grossly intact for the purposes of this session Judgment and insight: Improving mildly Assessment Bipolar disorder, unspecified Rule out cluster B personality disorder Cannabis use disorder Plan: -Patient continues to meet criteria for inpatient psychiatric admission for symptom stabilization and safety. Patient has signed adult voluntary form and medication consent and was placed in patient's chart. -Medications: Increase Abilify to 5 mg by mouth daily for mood augmentation/stabilization. -When necessary Ativan and Haldol for agitation/aggression. -SW on board for discharge planning. Encouraged the patient to participate in milieu. [
[2020-07-15 13:36] VITALS: TEMP 98.2
[2020-07-15] MEDS: ALBUTEROL HFA INHALER INHALATION PRN (18:43)
[2020-07-16 00:34] VITALS: BP 116/57; PULSE 80; RESP 16
[2020-07-16] MEDS: SYMBICORT 80-4.5 MCG INHALER (MHU) INHALATION SCH (07:56)
[2020-07-16] MEDS ORDERED: ARIPiprazole 2 MG TAB PO SCH (09:00)
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
== END 2020-07-16 14:17 | disposition home or self-care (01) | DRG 885 ==
LOC: EC 18:05 → 3MHU 07-13 01:18
PROVIDERS: ADMIT Psychiatry & Neurology Psychiatry; ATTEND Psychiatry & Neurology Psychiatry
DX: F31.30 Bipolar disorder, current episode depressed, mild or moderate severity, unspecified (principal); Q23.1 Congenital insufficiency of aortic valve; R45.851 Suicidal ideations; F60.89 Other specific personality disorders; Z20.822 Contact with and (suspected) exposure to COVID-19; S62.304A Unspecified fracture of fourth metacarpal bone, right hand, initial encounter for closed fracture; J45.909 Unspecified asthma, uncomplicated; F12.10 Cannabis abuse, uncomplicated; G47.9 Sleep disorder, unspecified; W18.30XA Fall on same level, unspecified, initial encounter; Z71.3 Dietary counseling and surveillance; Z79.899 Other long term (current) drug therapy; Z88.0 Allergy status to penicillin; Z81.8 Family history of other mental and behavioral disorders
CPT/HCPCS: 29125; 80053; 80061; 82075; 83036; 84443; 85025; 87635; 99285

== ENCOUNTER 2020-11-09 12:45 | Inpatient (IN) | payer BC ==
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
[2020-11-09] MEDS ORDERED: MAGNESIUM HYDROXIDE 2,400 MG/10 ML CUP PO PRN (14:50)
[2020-11-09] MEDS ORDERED: MAG HYDROX/AL HYDROX/SIMETH 30 ML CUP PO PRN (14:50)
[2020-11-09] MEDS ORDERED: ACETAMINOPHEN TAB 325 MG TAB PO PRN (14:50)
[2020-11-09] MEDS ORDERED: LORazepam 2 MG/ML INJ IM PRN (14:53)
[2020-11-09] MEDS ORDERED: HALOPERIDOL LACTATE 5 MG/ML 1 ML VIAL IM PRN (14:53)
[2020-11-09] MEDS ORDERED: ALBUTEROL HFA INHALER INHALATION PRN (17:08)
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
[2020-11-10 06:53] LABS: Basophils # (A) 0.1 k/uL (0-0.2); Basophils % (A) 1 %; Eosinophils # (A) 0.5 k/uL (0-0.7); Eosinophils % (A) 8 %; HCT 49.4 % (39.0-53.0); HGB 17.8 gm/dL (13.0-17.5); Lymphocytes % (A) 33 %; MCH 32.4 pg (25.0-35.0); MCHC 36.1 g/dL (31.0-37.0); MCV 89.7 fL (80.0-100.0); Mean Platelet Volume 7.7; Monocytes # (A) 0.3 k/uL (0-1.0); Monocytes % (A) 5 %; Neutrophils # (A) 3.1 k/uL (1.3-7.7); Neutrophils % (A) 51 %; Platelet Count 191 k/uL (150-450); RDW 12.2 % (11.5-15.5); WBC 6.1 k/uL (3.8-10.6)
[2020-11-10 07:03] LABS: ALT 17 U/L (4-49); AST 25 U/L (17-59); African American GFR (CKD) >90 (>60 ml/min/1.73 sqM); Albumin 4.9 g/dL (3.5-5.0); Alkaline Phosphatase 86 U/L (38-126); Anion Gap 11 mmol/L; Blood Urea Nitrogen 15 mg/dL (9-20); Calcium 9.9 mg/dL (8.4-10.2); Carbon Dioxide 28 mmol/L (22-30); Chloride 102 mmol/L (98-107); Glucose 85 mg/dL (74-99); Non-African American GFR(CKD) >90 (>60 ml/min/1.73 sqM); Potassium 3.9 mmol/L (3.5-5.1); Sodium 141 mmol/L (137-145); Total Bilirubin 1.6 mg/dL (0.2-1.3); Total Protein 7.4 g/dL (6.3-8.2)
[2020-11-10] MEDS: SYMBICORT 80-4.5 MCG INHALER INHALATION SCH (08:23)
[2020-11-10] MEDS ORDERED: NICOTINE 14MG/24HR PATCH TRANSDERM SCH (09:00)
--- NOTE | 2020-11-10 09:20 | P.HP ---
Psychiatric H&P - . H&P Date: 11/10/20 History & Physical: Allergies Allergy/AdvReac Type Severity Reaction Status Date / Time Penicillins Allergy Unknown Verified 11/09/20 17:07 Vital Signs Temp 98.6 F 11/09/20 17:03 Pulse 96 11/09/20 17:03 Resp 16 11/09/20 17:03 BP 129/89 11/09/20 17:03 Pulse Ox 99 11/09/20 12:46 Intake & Output 11/09/20 11/10/20 11/10/20 18:59 06:59 18:59 Weight 54.431 kg Laboratory Last Values WBC 6.1 k/uL (3.8-10.6) 11/10/20 06:11 RBC 5.50 m/uL (4.30-5.90) 11/10/20 06:11 Hgb 17.8 gm/dL (13.0-17.5) H 11/10/20 06:11 Hct 49.4 % (39.0-53.0) 11/10/20 06:11 MCV 89.7 fL (80.0-100.0) 11/10/20 06:11 MCH 32.4 pg (25.0-35.0) 11/10/20 06:11 MCHC 36.1 g/dL (31.0-37.0) 11/10/20 06:11 RDW 12.2 % (11.5-15.5) 11/10/20 06:11 Plt Count 191 k/uL (150-450) 11/10/20 06:11 MPV 7.7 11/10/20 06:11 Neutrophils % 51 % 11/10/20 06:11 Lymphocytes % 33 % 11/10/20 06:11 Monocytes % 5 % 11/10/20 06:11 Eosinophils % 8 % 11/10/20 06:11 Basophils % 1 % 11/10/20 06:11 Neutrophils # 3.1 k/uL (1.3-7.7) 11/10/20 06:11 Lymphocytes # 2.0 k/uL (1.0-4.8) 11/10/20 06:11 Monocytes # 0.3 k/uL (0-1.0) 11/10/20 06:11 Eosinophils # 0.5 k/uL (0-0.7) 11/10/20 06:11 Basophils # 0.1 k/uL (0-0.2) 11/10/20 06:11 Sodium 141 mmol/L (137-145) 11/10/20 06:11 Potassium 3.9 mmol/L (3.5-5.1) 11/10/20 06:11 Chloride 102 mmol/L (98-107) 11/10/20 06:11 Carbon Dioxide 28 mmol/L (22-30) 11/10/20 06:11 Anion Gap 11 mmol/L 11/10/20 06:11 BUN 15 mg/dL (9-20) 11/10/20 06:11 Creatinine 0.86 mg/dL (0.66-1.25) 11/10/20 06:11 Est GFR (CKD-EPI)AfAm >90 (>60 ml/min/1.73 sqM) 11/10/20 06:11 Est GFR (CKD-EPI)NonAf >90 (>60 ml/min/1.73 sqM) 11/10/20 06:11 Glucose 85 mg/dL (74-99) 11/10/20 06:11 Calcium 9.9 mg/dL (8.4-10.2) 11/10/20 06:11 Total Bilirubin 1.6 mg/dL (0.2-1.3) H 11/10/20 06:11 AST 25 U/L (17-59) 11/10/20 06:11 ALT 17 U/L (4-49) 11/10/20 06:11 Alkaline Phosphatase 86 U/L (38-126) 11/10/20 06:11 Total Protein 7.4 g/dL (6.3-8.2) 11/10/20 06:11 Albumin 4.9 g/dL (3.5-5.0) 11/10/20 06:11 TSH 0.873 mIU/L (0.465-4.680) 11/10/20 06:11 11/10/20 08:59 Identification: Andrew Haider is a 20 years old single white male living in [facility]. He was readmitted to [facility] on 11/09/2020 on a voluntary basis since his family had called the police informing them that he is suicidal. History of present illness: When asked for the reasons for coming to hospital he said that he cannot get his anger controlled at all. He said his girlfriend overreacted to much, he wanted to be alone and had a couple of beers in the morning and then went for a drive. When he returned his girlfriend's family had called police on him and they brought him down to the hospital. According to the records apparently he had told his girlfriend in the morning that the previous night he had a dream in which he had killed himself his girlfriend and the son. Apparently this made his family to call the police. Patient reported that when he gets angry he yells a lot or punches the wall. But he insists that he has never hurt anybody or for treatment anybody physically when he was angry. He also cuts himself when he gets angry since age 14. Last time he cut himself was 1 month ago he has never overdosed on swallowed objects. He said when he gets angry cuts himself or punches the wall and once he settles down he gets quite depressed lasting for up to 2 days. He denies manic episodes hallucinations or delusional thinking. He said he has been having thoughts of hurting himself or killing himself for the last 10 years and he actually has not acted on any of those thoughts except when he gets angry he punches the wall or cuts himself. Previous psychiatric history/drug and alcohol abuse: This is his second hospitalization here. 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 Has been seeing a therapist through the telehealth program for the last about 3 months and it did not help him in any way to manage his anger. He has been smoking about half an ounce of pot a day for the last about 6 years and the last use was on the . He says pot makes him feel calm and happy. He denies abusing other drugs and alcohol even though he had to beer yesterday morning. He said he may drink a couple of beers here and there but does not like it. He had graduated from high school and had 2 classes in college. He did not have any issues with learning or discipline. As noted earlier he started to cut himself at the age of 14 and had suicidal thoughts or thoughts of hurting himself since age 10. He said this has something to do with abandonment since his father when he was 4 years old from auto accident. Several family members also had . He said his parents soon after he was born or something similar to that and his mother had a boyfriend to whom she is now. Patient does not get along with his stepfather. Currently he lives with his girlfriend and 6-month-old son. Apparently he had a girlfriend in the past and about 6 years ago he started to think about becoming a woman and gradually it became stronger. He has started on hormones and to become a [employer] someday. He said his girlfriend knows about it and she is okay with that. 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 He denies any pending legal issues. He was not in the . He does not have any jain and does not believe in God. He is currently straight. He has [facility] health insurance. Family history: Denies any history of physical or psychiatric problems in the [facility]. Mental status examination: This is a slender white ambulatory male with good hygiene and long hair. He does not have any facial hair. He is polite and cooperative. He has some abrasions over his knuckles of both hands. He does not show any psychomotor agitation or retardation. His speech is spontaneous relevant and goal-directed. His mood is euthymic to cheerful and affect is appropriate. He denies hallucinations delusional thinking and homicidal thoughts. Even though he said he has been having suicidal thoughts on and off since age 10 he does not want to kill himself and does not have any plans to do so either. He is well oriented with good memory concentration and general fund of knowledge. His insight is fair and judgment is also fair. Diagnostic impression: Personality disorder unspecified with borderline features, cannabis use disorder moderate to severe. Plan: He already had his physical examination. He will have psychosocial evaluation will continue his therapy and supervision. Observe for any self abusive/suicidal behavior. I will not start him on any psychiatric medication since his problem does not appear to be treated with any medication and he would benefit from DBT and he was advised of this. He agreed with this recommendation quite readily. Discharge with outpatient follow-up.
[2020-11-10 11:55] LABS: Chol/HDL Ratio 4.68; Cholesterol 145 mg/dL (0-200); LDL Cholesterol,Calculated 67.2 mg/dL (0.0-131.0)
[2020-11-10 14:41] LABS: Hemoglobin A1C 4.5 % (4.0-6.0)
[2020-11-11] MEDS: SYMBICORT 80-4.5 MCG INHALER INHALATION SCH ×3 (03:35→21:31)
--- NOTE | 2020-11-11 10:55 | P.PN ---
Progress Note - Text Progress Note Date: 11/11/20 Interval History: Patient was seen sitting at the side of his bed in his room and was directable and agreeable to speak with life insurance underwriter in the office. Patient appears to have long hair and glasses and was irritable at times during the interview. He spoke about the circumstances of him getting hospitalized and states that "my girlfriend's family freaked out and called the sales effectiveness manager on me". He states that he smashed a class bottle against the wall. He states that he has difficulties with irritability and anger issues usually at home. He states that he also feels depressed "constantly" and claims that he has been feeling suicidal chronically for 14 years however has no intent or plan. He states that he is willing to try medications and lithium at this time. He states that he sleeps poorly in the hospital however was refusing medications at nighttime. He claims to have a fair appetite. At this time patient denies any homical ideations, intent or plan. Patient denies any auditory, visual hallucinations and denies any paranoia or delusions. Patient denies any side effects from the medications and has been compliant with meds. Mental Status Exam: General Appearance: Patient appears to be thin, long hair, glasses, stated age is alert, irritable at times yet directable, and attmeptd to be cooperative. Behavior: Patient is calmly seated without any agitated behavior. Irritable at times Speech: Patient's speech is fluent and nonpressured. Mood/Affect: Mood is depressed and irritable, affect is congruent Suicidality/Homicidality: Patient denies having any homicidal ideation intent or plan. Admits to chronic suicidal thoughts no intent or plan. Perceptions: Patient denies any visual hallucinations and denies any auditory hallucinations Though content/process: There is no evidence of any delusional thought content and thought process is linear and goal-directed. Depressive content. Memory and concentration: AOX3, grossly intact for the purposes of this session Judgment and insight: Improving mildly Assessment mood disorder unspecified, r/p bipolar depression vs major depressive disorder vs substance induced mood disorder Cannabis use disorder severe Nicotine dependence Cluster B personality traits Plan: -Patient continues to meet criteria for inpatient psychiatric admission for symptom stabilization and safety. Patient has signed adult voluntary form and medication consent and was placed in patient's chart. -Medications: Breaks 150 mg twice a day for mood stabilization/suicidal thoughts. -When necessary Ativan and Haldol for agitation/aggression. -NRT - nicotine patch -SW on board for discharge planning. Encouraged the patient to participate in milieu.
[2020-11-11] MEDS: LITHIUM CARBONATE 150 MG CAP PO SCH ×2 (11:31→21:22)
[2020-11-12] MEDS: SYMBICORT 80-4.5 MCG INHALER INHALATION SCH ×2 (08:04→21:15)
[2020-11-12] MEDS: LITHIUM CARBONATE 150 MG CAP PO SCH (08:04)
[2020-11-12] MEDS ORDERED: MELATONIN 3 MG TABLET PO PRN (09:14)
--- NOTE | 2020-11-12 09:21 | P.PN ---
Progress Note - Text Progress Note Date: 11/12/20 Interval History: Patient was seen coming out of goal setting group and was directable and agree able to speak with fiction and nonfiction writer prose in the office. Patient appears to have long hair and glasses. Patient continues to be fairly irritable during conversation. He claims that he is still feeling depressed today and appears to have a fairly superficial insight into his condition and need for treatment. He claims that he has been feeling suicidal in the hospital however has no specific plan to harm himself. He was irritable with fiction and nonfiction writer prose during the interview. He spoke about wanting to be discharged and feels that he wants to sign an AMA. He is denying any improvement or change in his mood since starting the lithium yesterday. He claims that he is not willing to take any other medication for sleep or his mood. He states that "weed will be the only thing that helps me with sleep". He claims to have a fair appetite. At this time patient denies any homical ideations, intent or plan. Patient denies any auditory, visual hallucinations and denies any paranoia or delusions. Patient denies any side effects from the medications and has been compliant with meds. Mental Status Exam: General Appearance: Patient appears to be thin, long hair, glasses, stated age is alert, irritable at times, and superficial Behavior: Patient is calmly seated without any agitated behavior. Irritable at times Speech: Patient's speech is fluent and nonpressured. Mood/Affect: Mood is depressed and irritable, affect is congruent Suicidality/Homicidality: Patient denies having any homicidal ideation intent or plan. Admits to chronic suicidal thoughts no intent or plan. Perceptions: Patient denies any visual hallucinations and denies any auditory hallucinations Though content/process: There is no evidence of any delusional thought content and thought process is linear and goal-directed. Memory and concentration: AOX3, grossly intact for the purposes of this session Judgment and insight: Improving mildly Assessment mood disorder unspecified, r/p bipolar depression vs major depressive disorder vs substance induced mood disorder Cannabis use disorder severe Nicotine dependence Cluster B personality traits Plan: -Patient continues to meet criteria for inpatient psychiatric admission for symptom stabilization and safety. Patient has signed adult voluntary form and medication consent and was placed in patient's chart. -Medications: increase [place] 300 mg twice a day for mood stabilization/suicidal thoughts. added melatonin 3mg qhs prn for sleep. -When necessary Ativan and Haldol for agitation/aggression. -NRT - nicotine patch -SW on board for discharge planning. Encouraged the patient to participate in milieu.
[2020-11-12] MEDS: LITHIUM CARBONATE 300 MG CAP PO SCH (21:15)
[2020-11-13] MEDS: LORazepam 1 MG TAB PO PRN ×2 (01:31→20:25)
[2020-11-13 01:34] VITALS: BP 116/76; PULSE 84; RESP 14; TEMP 98.4
[2020-11-13] MEDS: SYMBICORT 80-4.5 MCG INHALER INHALATION SCH ×2 (09:24→20:24)
[2020-11-13] MEDS: LITHIUM CARBONATE 300 MG CAP PO SCH ×2 (09:25→20:25)
[2020-11-13] MEDS ORDERED: QUEtiapine 25 MG TAB PO PRN (10:08)
--- NOTE | 2020-11-13 10:18 | P.PN ---
Progress Note - Text Progress Note Date: 11/13/20 Interval History: Patient was seen laying in bed this morning and was directable and agreeable to speak with automotive service writer in the office. Patient appears to have long hair and glasses. Patient continues to be fairly irritable during conversation with automotive service writer and superficially cooperative. He claims that he is not feeling depressed today and feels "fine" and appears to have a fairly superficial insight into his condition. He states that he feels "no different" being on the lithium and is agreeable to continue taking it. He claims that he only will know if the lithium is helping if he gets angry. He requested once again to be discharged today. He claims that he is not willing to take any other medication for sleep or his mood, only the lithium. He claims that he was not able to sleep well last night and required Ativan. He claims to have a fair appetite. At this time patient denies any homical ideations, intent or plan. Patient denies any auditory, visual hallucinations and denies any paranoia or delusions. Patient denies any side effects from the medications and has been compliant with meds. Mental Status Exam: General Appearance: Patient appears to be thin, long hair, glasses, stated age is alert, irritable and superficial Behavior: Patient is calmly seated without any agitated behavior. Irritable at times, improving mildly Speech: Patient's speech is fluent and nonpressured. Mood/Affect: Mood is "ok", affect is congruent Suicidality/Homicidality: Patient denies having any homicidal ideation intent or plan. Denies any current suicidal ideation intent or plan. Perceptions: Patient denies any visual hallucinations and denies any auditory hallucinations Though content/process: There is no evidence of any delusional thought content and thought process is linear and goal-directed. Memory and concentration: AOX3, grossly intact for the purposes of this session Judgment and insight: chronically poor, Improving mildly Assessment mood disorder unspecified, r/p bipolar depression vs major depressive disorder vs substance induced mood disorder Cannabis use disorder severe Nicotine dependence Cluster B personality traits Plan: -Patient continues to meet criteria for inpatient psychiatric admission for symptom stabilization and safety. Patient has signed adult voluntary form and medication consent and was placed in patient's chart. -Medications: [place] 300 mg twice a day for mood stabilization/suicidal thoughts. added 25mg qhs seroquel prn for insomnia -When necessary Ativan and Haldol for agitation/aggression. -NRT - nicotine patch -SW on board for discharge planning. Encouraged the patient to participate in milieu. Patient signed AMA and is set for expiration on 11/15. SW to call mother to inform of possible d/c planning tomorrow.
[2020-11-14] MEDS: LITHIUM CARBONATE 300 MG CAP PO SCH (09:06)
[2020-11-14] MEDS: SYMBICORT 80-4.5 MCG INHALER INHALATION SCH (09:07)
--- NOTE | 2020-11-14 11:17 | P.DS ---
Providers Date of admission: 11/09/20 14:48 Expected date of discharge: 11/14/20 Attending physician: Bari Jones MD Consults: 11/09/20 14:50 Consult Physician Routine Consulting Provider: Haley Ham Consult Reason/Comments: medical management Do you want consulting provider notified?: Yes Primary care physician: Stated None - Discharge Diagnosis(es) (1) Persistent mood [affective] disorder, unspecified Current Visit: Yes Status: Acute Priority: High (2) Cannabis use disorder, mild, abuse Current Visit: Yes Status: Acute Priority: Medium (3) Nicotine dependence Current Visit: Yes Status: Acute Priority: Low (4) Cluster B personality disorder Current Visit: Yes Status: Acute Priority: Medium Hospital Course: Admission HPI: Admission note was completed by Dr. Cortez"Josselinkelby Radha Haider is a 20 years old single white male living in [facility]. He was readmitted to [facility] on 11/09/2020 on a voluntary basis since his family had called the police informing them that he is suicidal. When asked for the reasons for coming to hospital he said that he cannot get his anger controlled at all. He said his girlfriend overreacted to much, he wanted to be alone and had a couple of beers in the morning and then went for a drive. When he returned his girlfriend's family had called police on him and they brought him down to the hospital. According to the records apparently he had told his girlfriend in the morning that the previous night he had a dream in which he had killed himself his girlfriend and the son. Apparently this made his family to call the police. Patient reported that when he gets angry he yells a lot or punches the wall. But he insists that he has never hurt anybody or for treatment anybody physically when he was angry. He also cuts himself when he gets angry since age 14. Last time he cut himself was 1 month ago he has never overdosed on swallowed objects. He said when he gets angry cuts himself or punches the wall and once he settles down he gets quite depressed lasting for up to 2 days. He denies manic episodes hallucinations or delusional thinking. He said he has been having thoughts of hurting himself or killing himself for the last 10 years and he actually has not acted on any of those thoughts except when he gets angry he punches the wall or cuts himself." Hospital course: Upon admission to the unit patient was initially irritable, aggressive and depressed. Patient was however directable and agreeable to commence treatment and signed adult voluntary form. Shortly after patient signed an AMA form requesting to be discharged. Patient got along well with other patients on the unit and followed unit protocol however at times was irritable. Patient was compliant with the medications and denied any side effects throughout hospital course. Patient repeatedly claimed that he did not want to be started on any antidepressant medications and refused several medication options. Patient was started on lithium however and titrated up to dose of 300 mg twice a day for mood stabilization/suicidal thoughts. Patient was also agreeable to take Seroquel 25 mg daily at bedtime when necessary for insomnia. Patient spoke of his stressors and engaged in therapy both group and individual. Patient was also seen by medical team for history and physical exam. Patient's lithium level was 0.4 on morning of discharge. Throughout the course of the hospitalization patient gradually improved with regards to mood lability, irritability, anxiety, sleep. On the day of discharge patient denied any suicidal or homicidal ideations intent or plan denied any auditory or visual hallucinations. Patient endorsed wanting to live for his health and future. The patient denied any access to guns or weapons. Patient denied any paranoia and did not endorse any delusions. Patient does have a significant history of substance abuse and was counseled on abstaining from all substances including alcohol and marijuana. Patient was offered however declined inpatient substance- abuse rehab. Patient claims that he does not want to cut back on cannabis use at this time. Patient was also counseled on the medications and need for regular compliance and was encouraged to follow-up with their outpatient appointment for mental health and also for primary care. Prior to discharge a family meeting will be arranged by long term care social worker to answer any questions and ensure safety upon discharge. Mask Design Engineer spoke with patient's mother Viola over the phone at [phone] who expressed her concerns about patient's agitation at times at home and his poor decisions. She claims that she is agreeable to have him stay with her and race and sports book writer explained that if patient's mood worsens or if patient becomes noncompliant with medication then she can be brought back to the ER for further treatment as patient is uncooperative with full treatment at this time however is voluntary but signed AMA. She agrees to this and also claims that the guns and weapons have been locked away or remove from the house. Mental status exam: General Appearance: Patient appears to be then, has long hair, stated age is a lert, directable and attempts to cooperate. Patient is in no acute distress and has improved hygiene and grooming Behavior: Patient is calmly seated without any agitated behavior. Speech: Patient's speech is fluent and nonpressured. Mood/Affect: Patient reports their mood is "good", affect is congruent Suicidality/Homicidality: Patient denies having any suicidal or homicidal ideation intent or plan. Perceptions: Patient denies any auditory or visual hallucinations. Though content/process: There is no evidence of any delusional thought content and thought process is linear and goal-directed. Memory and concentration: AOX3, grossly intact for the purposes of this session. Can spell "WORLD" backwards correctly. Judgment and insight: chronically poor, however has improved with guarded prognosis Impression: Mood disorder unspecified, rule out secondary to substance use versus bipolar disorder versus major depressive disorder Cluster B personality disorder Cannabis use disorder Nicotine dependence Plan: -Continue with discharge today as patient has improved and stabilized psychiatrically and is not currently an imminent threat to himself and/or others. Patient will remain at chronically elevated risk for harm to self and/or others due to his impulsivity/agitation and substance abuse. -Continue medications: [place] 300 mg twice a day for mood stabilization/suicidal thoughts. Seroquel 25 mg daily at bedtime when necessary for insomnia. Patient is refusing to take any other medications at this time including antidepressants. -Patient was counseled on the need for medication compliance and appropriate follow-up at mental health and also primary care for medical issues. Patient verbalized understanding and agreed. -Social work to arrange for and conduct family meeting to ensure safety upon discharge and answer any questions/concerns. Social work also to arrange for patients follow up appointments for psychiatric care along with follow up with primary care provider. -Patient counseled on abstaining from recreational drugs and marijuana and alcohol. Was informed/educated on the adverse effects on their physical and mental health. Patient verbally agreed and understood. Patient was offered substance abuse treatment however declined at this time. -Patient was instructed to return to the hospital or seek immediate medical care if their psychiatric or medical symptoms do worsen or reoccur. Allergies Allergy/AdvReac Type Severity Reaction Status Date / Time Penicillins Allergy Unknown Verified 11/09/20 17:07 Laboratory Results WBC 6.1 k/uL (3.8-10.6) 11/10/20 06:11 RBC 5.50 m/uL (4.30-5.90) 11/10/20 06:11 Hgb 17.8 gm/dL (13.0-17.5) H 11/10/20 06:11 Hct 49.4 % (39.0-53.0) 11/10/20 06:11 MCV 89.7 fL (80.0-100.0) 11/10/20 06:11 MCH 32.4 pg (25.0-35.0) 11/10/20 06:11 MCHC 36.1 g/dL (31.0-37.0) 11/10/20 06:11 RDW 12.2 % (11.5-15.5) 11/10/20 06:11 Plt Count 191 k/uL (150-450) 11/10/20 06:11 MPV 7.7 11/10/20 06:11 Neutrophils % 51 % 11/10/20 06:11 Lymphocytes % 33 % 11/10/20 06:11 Monocytes % 5 % 11/10/20 06:11 Eosinophils % 8 % 11/10/20 06:11 Basophils % 1 % 11/10/20 06:11 Neutrophils # 3.1 k/uL (1.3-7.7) 11/10/20 06:11 Lymphocytes # 2.0 k/uL (1.0-4.8) 11/10/20 06:11 Monocytes # 0.3 k/uL (0-1.0) 11/10/20 06:11 Eosinophils # 0.5 k/uL (0-0.7) 11/10/20 06:11 Basophils # 0.1 k/uL (0-0.2) 11/10/20 06:11 Sodium 141 mmol/L (137-145) 11/10/20 06:11 Potassium 3.9 mmol/L (3.5-5.1) 11/10/20 06:11 Chloride 102 mmol/L (98-107) 11/10/20 06:11 Carbon Dioxide 28 mmol/L (22-30) 11/10/20 06:11 Anion Gap 11 mmol/L 11/10/20 06:11 BUN 15 mg/dL (9-20) 11/10/20 06:11 Creatinine 0.86 mg/dL (0.66-1.25) 11/10/20 06:11 Est GFR (CKD-EPI)AfAm >90 (>60 ml/min/1.73 sqM) 11/10/20 06:11 Est GFR (CKD-EPI)NonAf >90 (>60 ml/min/1.73 sqM) 11/10/20 06:11 Glucose 85 mg/dL (74-99) 11/10/20 06:[address] Glu mg/dL 82 11/10/20 06:11 Hemoglobin A1c 4.5 % (4.0-6.0) 11/10/20 06:11 Calcium 9.9 mg/dL (8.4-10.2) 11/10/20 06:11 Total Bilirubin 1.6 mg/dL (0.2-1.3) H 11/10/20 06:11 AST 25 U/L (17-59) 11/10/20 06:11 ALT 17 U/L (4-49) 11/10/20 06:11 Alkaline Phosphatase 86 U/L (38-126) 11/10/20 06:11 Total Protein 7.4 g/dL (6.3-8.2) 11/10/20 06:11 Albumin 4.9 g/dL (3.5-5.0) 11/10/20 06:11 Triglycerides 234.0 mg/dL (0.0-149.0) H 11/10/20 06:11 Cholesterol 145 mg/dL (0-200) 11/10/20 06:11 LDL Cholesterol, Calc 67.2 mg/dL (0.0-131.0) 11/10/20 06:11 VLDL Cholesterol, Calc 46.80 mg/dL (5.00-40.00) H 11/10/20 06:11 HDL Cholesterol 31.0 mg/dL (40.0-60.0) L 11/10/20 06:11 Cholesterol/HDL Ratio 4.68 11/10/20 06:11 TSH 0.873 mIU/L (0.465-4.680) 11/10/20 06:11 [place] 0.4 mmol/L 11/14/20 07:38 Vital Signs Temp 98.4 F 11/13/20 01:33 Pulse 84 11/13/20 01:33 Resp 14 11/13/20 01:33 BP 116/76 11/13/20 01:33 Pulse Ox 99 11/09/20 12:46 Patient Condition at Discharge: Stable Plan - Discharge Summary New Discharge Prescriptions: New [place] Carbonate 300 mg PO BID 30 Days cap QUEtiapine [SEROquel] 25 mg PO HS PRN 14 Days tab PRN Reason: Insomnia Continue Fluticasone/Vilanterol [Breo Ellipta 100-25 Mcg Inhaler] 1 puff INHALATION RT-DAILY #1 device Albuterol Inhaler [Ventolin Hfa Inhaler] 1 puff INHALATION RT-Q4H PRN #1 puff PRN Reason: Shortness Of Breath Discontinued ARIPiprazole [Abilify] 5 mg PO DIRECTED Discharge Medication List Albuterol Inhaler [Ventolin Hfa Inhaler] 1 puff INHALATION RT-Q4H PRN #1 puff 11/14/20 [Rx] Fluticasone/Vilanterol [Breo Ellipta 100-25 Mcg Inhaler] 1 puff INHALATION RT- DAILY #1 device 11/14/20 [Rx] [place] Carbonate 300 mg PO BID 30 Days cap 11/14/20 [Rx] QUEtiapine [SEROquel] 25 mg PO HS PRN 14 Days tab 11/14/20 [Rx] Follow up Appointment(s)/Referral(s): Other, other [Other] - 11/14/20 4:00 pm None,Stated [Primary Care Provider] - 1-2 days Activity/Diet/Wound Care/Special Instructions: Activity and diet as tolerated. Avoid the use of street drugs and alcohol. Take all medications as prescribed. When you are in need of refills on your medications please contact your medical provider and/or outpatient psychiatrist to have this done. Please go to scheduled outpatient appointment for aftercare treatment. If symptoms return or become worse, call the crisis line at and/or go to the nearest emergency room for evaluation. Discharge Disposition: HOME SELF-CARE
== END 2020-11-14 12:25 | disposition home or self-care (01) | DRG 885 ==
LOC: EC 12:45 → 3MHU 14:48
PROVIDERS: ADMIT Psychiatry & Neurology Psychiatry; ATTEND Psychiatry & Neurology Psychiatry
DX: F31.9 Bipolar disorder, unspecified (principal); R45.851 Suicidal ideations; F12.20 Cannabis dependence, uncomplicated; F17.200 Nicotine dependence, unspecified, uncomplicated; F41.9 Anxiety disorder, unspecified; F60.89 Other specific personality disorders; G47.00 Insomnia, unspecified; Z79.890 Hormone replacement therapy; Z79.899 Other long term (current) drug therapy
CPT/HCPCS: 80053; 80061; 80178; 82075; 83036; 84443; 85025; 99285

== ENCOUNTER 2020-12-18 08:05 | Emergency (ER) | payer BC ==
[2020-12-18 08:12] VITALS: BP 113/71; PULSE 69; RESP 18; TEMP 98.1
--- NOTE | 2020-12-18 08:39 | ED ---
General Adult HPI - General Chief complaint: GI Bleed Stated complaint: blood in stool Time Seen by Provider: 12/18/20 08:05 Source: patient, RN notes reviewed, old records reviewed Mode of arrival: ambulatory Limitations: no limitations - History of Present Illness Initial comments: This a 20-year-old male who presents emergency department stating that he had blood in stool this morning for the first time. Patient states it's only occurred once per patient states he ate some red velvet cookies last night and he wondered if that had anything to do with her. Patient denies any pain in the rectum. Patient denies any abdominal pain. Patient denies any fever chills. Patient states he has no symptoms he only came in because he saw the red in the toilet and on the toilet paper. Patient has no history of inflammatory bowel disease. Patient has no history of any blood thinners. - Related Data Previous Rx's Medication Instructions Recorded Albuterol Inhaler [Ventolin Hfa 1 puff INHALATION RT-Q4H PRN #1 11/14/20 Inhaler] puff Fluticasone/Vilanterol [Breo 1 puff INHALATION RT-DAILY #1 11/14/20 Ellipta 100-25 Mcg Inhaler] device [place] Carbonate 300 mg PO BID 30 Days cap 11/14/20 QUEtiapine [SEROquel] 25 mg PO HS PRN 14 Days tab 11/14/20 Allergies Allergy/AdvReac Type Severity Reaction Status Date / Time Penicillins Allergy Unknown Verified 12/18/20 08:12 Review of Systems ROS Statement: Those systems with pertinent positive or pertinent negative responses have been documented in the HPI. ROS Other: All systems not noted in ROS Statement are negative. Past Medical History Past Medical History: Syncope Additional Past Medical History / Comment(s): Congenital heart defect bicuspid valve- no restrictions, syncope d/t dehydration. bipolar disorder History of Any Multi-Drug Resistant Organisms: None Reported Additional Past Surgical History / Comment(s): EYE- muscles in both eyes tightened 2000, wisdom teeth Past Anesthesia/Blood Transfusion Reactions: No Reported Reaction Past Psychological History: Bipolar Smoking Status: Never smoker Past Alcohol Use History: None Reported Past Drug Use History: Marijuana - Past Family History Mother History Unknown: Yes Additional Family Medical History / Comment(s): Pt states he has not been in contact with his mother and does not know her health hx Father Family Medical History: No Reported History Additional Family Medical History / Comment(s): Father in a motorcycle accident when pt was 4 yrs old. General Exam - General Exam Comments Initial Comments: GENERAL: Patient is well-developed and well-nourished. Patient is nontoxic and well- hydrated and is in no acute distress. ENT: Neck is soft and supple. No significant lymphadenopathy is noted. Oropharynx is clear. Moist mucous membranes. Neck has full range of motion without eliciting any pain. EYES: The sclera were anicteric and conjunctiva were pink and moist. Extraocular movements were intact and pupils were equal round and reactive to light. Eyelids were unremarkable. PULMONARY: Unlabored respirations. Good breath sounds bilaterally. No audible rales rhonchi or wheezing was noted. CARDIOVASCULAR: There is a regular rate and rhythm without any murmurs gallops or rubs. ABDOMEN: Soft and nontender with normal bowel sounds. RECTAL: On rectal exam stool was slightly red. There was no fissure or hemorrhoid noted. SKIN: Skin is clear with no lesions or rashes and otherwise unremarkable. NEUROLOGIC: Patient is alert and oriented x3. Cranial nerves II through XII are grossly int act. Motor and sensory are also intact. Normal speech, volume and content. Symmetrical smile. MUSCULOSKELETAL: Normal extremities with adequate strength and full range of motion. LYMPHATICS: No significant lymphadenopathy is noted PSYCHIATRIC: Normal psychiatric evaluation. Limitations: no limitations Course Vital Signs 12/18/20 08:06 Temperature 98.1 F Pulse Rate 69 Respiratory 18 Rate Blood Pressure 113/71 O2 Sat by Pulse 97 Oximetry Medical Decision Making - Medical Decision Making Occult stool was negative for blood. Hemoglobin was stable. - Lab Data Result diagrams: 12/18/20 08:41 Lab Results 12/18/20 12/18/20 Range/Units 08:41 08:41 WBC 6.3 (3.8-10.6) k/uL RBC 4.83 (4.30-5.90) m/uL Hgb 16.0 (13.0-17.5) gm/dL Hct 45.5 (39.0-53.0) % MCV 94.1 (80.0-100.0) fL MCH 33.0 (25.0-35.0) pg MCHC 35.1 (31.0-37.0) g/dL RDW 13.4 (11.5-15.5) % Plt Count 220 (150-450) k/uL MPV 8.0 Neutrophils % 51 % Lymphocytes % 29 % Monocytes % 5 % Eosinophils % 12 % Basophils % 1 % Neutrophils # 3.2 (1.3-7.7) k/uL Lymphocytes # 1.9 (1.0-4.8) k/uL Monocytes # 0.3 (0-1.0) k/uL Eosinophils # 0.8 H (0-0.7) k/uL Basophils # 0.1 (0-0.2) k/uL Poikilocytosis Slight Stool Occult Blood Negative (Negative) Disposition Clinical Impression: Red stool Disposition: HOME SELF-CARE Condition: Good Instructions (If sedation given, give patient instructions): Gastrointestinal Bleeding (ED) Is patient prescribed a controlled substance at d/c from ED?: No Referrals: Rafael Deleon MD [Primary Care Provider] - 1-2 days Time of Disposition: 09:04
[2020-12-18 08:56] LABS: Basophils # (A) 0.1 k/uL (0-0.2); Basophils % (A) 1 %; Eosinophils # (A) 0.8 k/uL (0-0.7); Eosinophils % (A) 12 %; HCT 45.5 % (39.0-53.0); Lymphocytes # (A) 1.9 k/uL (1.0-4.8); Lymphocytes % (A) 29 %; MCHC 35.1 g/dL (31.0-37.0); MCV 94.1 fL (80.0-100.0); Monocytes # (A) 0.3 k/uL (0-1.0); Monocytes % (A) 5 %; Neutrophils # (A) 3.2 k/uL (1.3-7.7); Neutrophils % (A) 51 %; Platelet Count 220 k/uL (150-450); Poikilocytosis Slight; RBC 4.83 m/uL (4.30-5.90); RDW 13.4 % (11.5-15.5); WBC 6.3 k/uL (3.8-10.6)
== END 2020-12-18 09:22 | disposition home or self-care (01) ==
LOC: EC 08:05
DX: R19.5 Other fecal abnormalities (principal); F31.9 Bipolar disorder, unspecified; F12.90 Cannabis use, unspecified, uncomplicated
CPT/HCPCS: 36415; 82272; 85025; 99284

== ENCOUNTER → 2024-04-04 | Outpatient (CLI) | payer BC ==
--- NOTE | 2024-04-05 08:20 | CA ---
Transthoracic Echo Report Name: Andrew Segal Age: 23 Gender: M : 2000 Exam Date: 04/04/2024 16:01 Exam Location: [facility] Ht (in): 65 Wt (lb): 115 Ordering Physician: Akil Amin DO Attending/Referring Phys: [employer] Beveler Pauline Womack RDCS Procedure CPT: Indications: Q23.81 BICUSPID AORTIC VALVE Cardiac Hx: Technical Quality: Good Contrast 1: Total Dose (mL): Contrast 2: Total Dose (mL): MEASUREMENTS (Male / Female) Normal Values 2D ECHO LV Diastolic Diameter PLAX 3.8 cm 4.2 - 5.9 / 3.9 - 5.3 cm LV Systolic Diameter PLAX 2.6 cm IVS Diastolic Thickness 0.9 cm 0.6 - 1.0 / 0.6 - 0.9 cm LVPW Diastolic Thickness 1.1 cm 0.6 - 1.0 / 0.6 - 0.9 cm LV Relative Wall Thickness 0.5 RV Internal Dim ED PLAX 2.4 cm LA Systolic Diameter LX 2.6 cm 3.0 - 4.0 / 2.7 - 3.8 cm LV Diastolic Volume MOD 4C 84.7 cm??? LV Systolic Volume MOD 4C 37.6 cm??? LV Ejection Fraction MOD 4C 55.6 % LV Cardiac Index MOD 4C 2201.7 cm???/min???m??? LV Diastolic Length 4C 8.0 cm LV Systolic Length 4C 6.2 cm LV Diastolic Volume MOD 2C 114.1 cm??? LV Systolic Volume MOD 2C 51.0 cm??? LV Ejection Fraction MOD 2C 55.3 % LV Cardiac Index MOD 2C 2949.1 cm???/min???m??? LV Diastolic Length 2C 8.2 cm LV Systolic Length 2C 6.3 cm LA Volume 35.5 cm??? 18 - 58 / 22 - 52 cm??? LA Volume Index 23.1 cm???/m??? 16 - 28 cm???/m??? M-MODE Aortic Root Diameter MM 3.0 cm AV Cusp Separation MM 2.3 cm DOPPLER AV Peak Velocity 121.9 cm/s AV Peak Gradient 5.9 mmHg AV Mean Velocity 79.4 cm/s AV Mean Gradient 3.0 mmHg AV Velocity Time Integral 26.7 cm LVOT Peak Velocity 103.4 cm/s LVOT Peak Gradient 4.3 mmHg LVOT Velocity Time Integral 20.1 cm MV Area PHT 2.7 cm??? Mitral E Point Velocity 111.1 cm/s Mitral A Point Velocity 49.7 cm/s Mitral E to A Ratio 2.2 MV Deceleration Time 279.5 ms TR Peak Velocity 194.8 cm/s TR Peak Gradient 15.2 mmHg Right Ventricular Systolic Press 20.2 mmHg FINDINGS Left Ventricle Left ventricular ejection fraction is estimated at 55-60 %. Small left ventricular cavity. Left ventricular wall thickness normal. Right Ventricle Normal right ventricular size and function. Right ventricular systolic pressure within normal limits. Right Atrium Normal right atrial size. No right atrial thrombus or mass seen. Left Atrium Normal left atrial size. No left atrial thrombus or mass present. Mitral Valve Structurally normal mitral valve. Trace mitral regurgitation. Aortic Valve Bicuspid aortic valve. No aortic valve stenosis or regurgitation. Tricuspid Valve Structurally normal tricuspid valve. Trace to mild tricuspid regurgitation. Pulmonic Valve Structurally normal pulmonic valve. No pulmonic regurgitation. Pericardium No pericardial or pleural effusion. Aorta Normal size aortic root and proximal ascending aorta. CONCLUSIONS Normal LV size and systolic function. Bicuspid aortic valve noted without significant stenosis or regurgitation. No pericardial effusion. Minimal mitral and tricuspid regurgitation Previewed by: Dr. Zayra Ramires MD (Electronically Signed) Final Date: 05 April 2024 08:19
== END | disposition home or self-care (01) ==
LOC: RADECHMAIN 15:52
PROVIDERS: ATTEND Family Medicine
DX: Q23.81 Bicuspid aortic valve (principal)
CPT/HCPCS: 93306